=== PATIENT | male | born 1945 | race Caucasian/White ===

== ENCOUNTER 2021-11-19 06:27 | Day surgery (SDC) | payer MEDICARE ==
[~2021-11-19] VITALS: Ht 188 cm; Wt 98.5 kg
[2021-11-19 07:30] VITALS: BP 121/53
[2021-11-19] MEDS ORDERED: METO25TA6 PO (07:58)
[2021-11-19] MEDS ORDERED: CHOL200013 PO (07:58)
[2021-11-19] MEDS ORDERED: ASPI-611 PO (07:58)
[2021-11-19] MEDS ORDERED: LOSA100T57 PO (07:58)
[2021-11-19] MEDS ORDERED: VITA1CAP PO (07:58)
[2021-11-19] MEDS ORDERED: GABA300C PO (07:58)
[2021-11-19] MEDS ORDERED: midazolam 1 mg/ML 2ml injection ONE (08:15)
[2021-11-19] MEDS ORDERED: LIDOcaine 1%/PF 5ML 10 MG/ML VIAL ONE (08:15)
[2021-11-19] MEDS ORDERED: fentaNYL/PF 50MCG/1 ML 2ML syringe ONE (08:15)
[2021-11-19] MEDS ORDERED: heparin sodium, porcine/PF 100unit/ml 5ML syringe ONE (08:15)
[2021-11-19 09:25] VITALS: BP 157/63
[2021-11-19 09:40] VITALS: BP 116/74
[2021-11-19 09:55] VITALS: BP 101/48
[2021-11-19 10:10] VITALS: BP 104/43
[2021-11-19 10:25] VITALS: BP 107/50
[2021-11-19] MEDS ORDERED: cefazolin/dext.iso 2gm/100ml 100 ML IV ONE (16:00)
== END 2021-11-19 10:30 | disposition home or self-care (01) ==
LOC: SSTAY O 06:27
PROVIDERS: ATTEND Radiology Vascular & Interventional Radiology
DX: C67.9 Malignant neoplasm of bladder, unspecified (principal); Z79.82 Long term (current) use of aspirin; Z79.899 Other long term (current) drug therapy; Z98.890 Other specified postprocedural states
CPT/HCPCS: 36561; 76937; 77001; 99152; 99153; C1788; C1894; J1642; J2250; J3010; J3490; J7030; A4620